=== PATIENT | male | born 1960 | race Caucasian/White ===

== ENCOUNTER → 2024-01-21 18:26 | Outpatient (REF) | payer BC, SELFPAY | LOC: MRI 3T 18:26 | PROVIDERS: ATTENDING PHYSICIAN Surgery; FAMILY PHYSICIAN Family Medicine | DX: R97.20 Elevated prostate specific antigen [PSA] (principal) | CPT/HCPCS: 72197; A9575 ==

== ENCOUNTER → 2025-02-17 07:26 | Outpatient (REF) | payer BC, SELFPAY | LOC: REG 07:26 | PROVIDERS: ATTENDING PHYSICIAN Surgery; FAMILY PHYSICIAN Family Medicine | DX: R97.20 Elevated prostate specific antigen [PSA] (principal) | CPT/HCPCS: 36415; 84153; 84154 ==

== ENCOUNTER → 2025-03-03 11:47 | Outpatient (REF) | payer BC, SELFPAY | LOC: CLAB 11:47 | PROVIDERS: ATTENDING PHYSICIAN Surgery | DX: R97.20 Elevated prostate specific antigen [PSA] (principal) | CPT/HCPCS: 88305; 88344 ==